=== PATIENT | female | born 1955 | race Caucasian/White ===

== ENCOUNTER 2020-06-14 07:54 | Outpatient (CLI) | payer MEDICARE ==
[~2020-06-14] VITALS: Ht 142.2 cm; Wt 55.0 kg
[~2020-06-14 07:54] MED LIST: ACTOS 15MG TAB15 MG PO; ALBUTEROL S0.4 MG/ML; ATORVASTATIN; GLUCOPHAGE500 MG/TAB PO; GLYNASE 3MG3 MG/TAB PO; LEVAQUIN 5500 MG/TAB PO; LEVOXYL0.05 MG PO; LORTAB 2.5/5001 TAB PO; METFORMIN; ONE DAILY1 TA1 PO; SIMVASTATIN PO; THEODUR
[2020-06-14 09:00] VITALS: BP 146/53; PULSE 73
--- NOTE | 2020-06-14 09:00 | NUR ---
PROCEDURE CANCELED DUE TO BP OVER 190 SYSTOLIC. PT TO CALL DR SMITH AND TELL HIM OF THE HIGH BP. MAXIMILIANO HARRIS RN CALLED AND SPOKE TO DR SINGH NURSE. SHE TOLD HER WHY WE CANCELED THE PROCEDURE AND WANT TO RESCHEDULE PROCEDURE. NURSE WILL LET MD KNOW BP 195/71; 180/68; 191/62; 178/65; 175/65; 161/47 PT WAS GIVEN HYDRALAZINE 10 MG AT 1052 AND 1 MG VERSED AND 25 MCG OF FENTANYL AT 1105.
[2020-06-14] MEDS ORDERED: PROAIR HFA0.09 MG/AC IH (09:05)
[2020-06-14] MEDS ORDERED: LIPITOR 10MG10 MG PO (09:06)
[2020-06-14] MEDS ORDERED: ALEVE 220MG220 MG PO (09:07)
[2020-06-14] MEDS ORDERED: PULMICORT180 MCG/Ac IH (09:07)
[2020-06-14 09:10] LABS: HEMATOCRIT 38.4 % (37.0-47.0); HEMOGLOBIN 12.2 g/dl (12.5-16.0); MEAN CELL VOLUME 94 fl (80.0-100.0); MEAN CORPUSCULAR HEMOGLOBIN 30 pg (27.0-31.0); MEAN CORPUSCULAR HGB CONC 32 g/dl (33.0-37.0); MEAN PLATELET VOLUME 11.2 fl (7.4-10.4); PLATELET COUNT 162 K/mm3 (130-400); RED BLOOD COUNT 4.08 M/mm3 (4.10-5.30); REDCELL DISTRIBUTION WIDTH-CV 13.6 % (11.5-14.5)
[2020-06-14 09:23] LABS: INR 0.9 (0.8-3.0); PROTHROMBIN TIME 9.9 SECONDS (9.7-12.8)
--- NOTE | 2020-06-14 09:45 | NUR ---
RADIOLOGIST CALLED ON B/R AT 148/50, 156/53
--- NOTE | 2020-06-14 11:15 | NUR ---
pt returned from CT scanner, unable to due procedure today due to B/P increasing. highest at 195/71, 188/68, 191/62, pt was given hydralazine iv and last BP was 178/65, at 1130 b/p at 149/44 pulse at 77, Dr Alfonso office called, spoke with nurse on above information of b/p issues, Nurse states will contact and then will get in touch in pt.
--- NOTE | 2020-06-14 12:00 | NUR ---
144/43 pulse 78, pt takes juice and applesauce, information about office notifying her given and pt has office number, int Dc'd intact, pt up in room dressed, discharged amb. at 1220 to criss
== END 2020-06-14 12:20 | disposition home or self-care (01) ==
LOC: COL.RAD 07:54
PROVIDERS: Internal Medicine Nephrology
DX: N18.4 Chronic kidney disease, stage 4 (severe) (principal)
CPT/HCPCS: J0360; J2250; J3010

== ENCOUNTER 2021-06-22 09:15 | Day surgery (SDC) | payer MEDICARE ==
[~2021-06-22] VITALS: Ht 144.8 cm; Wt 54.0 kg
[~2021-06-22 09:15] MED LIST changes: +ALEVE 220MG220 MG PO; +CARDURA4 MG PO; +HYGROTON 2525 MG/TAB PO; -LEVOXYL0.05 MG PO; +LEVOXYL0.075 MG PO; +LIPITOR 10MG10 MG PO; +NORVASC 10MG10 MG PO; +PROAIR HFA0.09 MG/AC IH; +PULMICORT180 MCG/Ac IH
--- NOTE | 2021-06-22 09:35 | NUR ---
65 year old patient admitted to [facility] [place] [facility] via ambulation, using a steady gait and no use of assistive devices. Patient is alert and oriented x3. Her boyfriend is present and verbalized that it is OK to ask personal health history questions with him present. Medicatons and HX reviewed. Patient states having a prior hyster and is in stage 4 kidney disease, however she states no fluid restrictions are present. Vitals obtained. Physical assessment completed. Procedure verified and consent signed. Patient verbalized understanding of procedure. First and last name + verified with the patient. Vitals obtained. Patient denied needing assistance changing into a clean gown. Non-slip socks are on. Warm blanket provided. Call newell is at bedside. Glasses case provided. Side rails x2.
[2021-06-22] MEDS ORDERED: LIPITOR 40MG TA40 MG PO (09:58)
[2021-06-22] MEDS ORDERED: LEVOXYL0.15 MG PO (09:59)
[2021-06-22] MEDS ORDERED: PRINIVIL10 MG PO (09:59)
--- NOTE | 2021-06-22 10:40 | NUR ---
Radiology took the patient to be scanned. IV disconnected and warm blanekt provided. ED, her boyfriend left the room to go to the cafeteria; stating he may leave the facility and come back.
[2021-06-22 10:52] VITALS: BP 163/45; PULSE 63; TEMP 98.9
[2021-06-22] MEDS ORDERED: NORCO 325 MG-51 TAB PO (14:38)
[2021-06-22 15:10] VITALS: BP 134/44; PULSE 72; TEMP 97.5
--- NOTE | 2021-06-22 15:10 | NUR ---
Patient arrived from PACU escorted by CED Hastings. Patient is alert and oriented x3 and denies pain. Report obtained over the phone. Vitals obtained. Incisions are clean, dry and intact; covered with skin glue dressing. Vitals obtained. Patient requested Pepsi to drink and a warm chocolate muffin. Call newell is at bedside. Side rails x2. Will continue to monitor per intervals.
[2021-06-22 15:25] VITALS: BP 165/43; PULSE 82
--- NOTE | 2021-06-22 15:25 | NUR ---
The patient is tolerating her Pepsi and muffin well. Denies neusea. No vomiting. Vitals obtained. Her boyfriend ED was brought arrived and was brought in her room.
[2021-06-22 15:40] VITALS: BP 160/47; PULSE 80
--- NOTE | 2021-06-22 15:40 | NUR ---
Vitals obtained. The patient was minimally assisted to bedside and then ambulated to the bathroom. She voided successfully and stated no difficulty. Then back to bed. The patient expressed desire to be discharged. Side rails x2 and her call newell is within reach.
--- NOTE | 2021-06-22 15:55 | NUR ---
IV was discontinued at this time due to impending discharge. Catheter tip is intact. Pressure dressing applied. The patient denied needing assistance changing into her personal clothes.
--- NOTE | 2021-06-22 16:25 | NUR ---
Discharge instructions and educational material was reviewed with the patient and her boyfriend. The patient verbalized understanding and signed the related paperwork. She denied having any questions or concerns. Packet was given to her boyfriend ED.
--- NOTE | 2021-06-22 16:30 | NUR ---
Follow up appointment card provided with office number in case the patient would like to change the date/time.
--- NOTE | 2021-06-22 16:43 | NUR ---
The patient was escorted out by CED Eisenberg to the patient entrence and transferred into the care of ED, her boyfriend who is present to drive. She has her discharge packet and personal belongings.
== END 2021-06-22 16:45 | disposition home or self-care (01) ==
LOC: SDCO 09:15
DX: C50.212 Malignant neoplasm of upper-inner quadrant of left female breast (principal); Z17.0 Estrogen receptor positive status [ER+]; E78.2 Mixed hyperlipidemia; R73.03 Prediabetes; E03.9 Hypothyroidism, unspecified; J45.909 Unspecified asthma, uncomplicated; I12.9 Hypertensive chronic kidney disease with stage 1 through stage 4 chronic kidney disease, or unspecified chronic kidney disease; N18.4 Chronic kidney disease, stage 4 (severe); Z87.891 Personal history of nicotine dependence; Z79.890 Hormone replacement therapy; Z79.899 Other long term (current) drug therapy; Z79.51 Long term (current) use of inhaled steroids
CPT/HCPCS: A4648; J1100; J2250; J2405; J2704; J2795; J3010; J7030